=== PATIENT | female | born 1995 | race Caucasian/White ===

== ENCOUNTER 2016-09-01 16:15 | Inpatient (IN) | payer SELFPAY, OTHER ==
[~2016-09-01] VITALS: Ht 157.5 cm; Wt 54.4 kg
[2016-09-01 17:58] LABS: HEMOGLOBIN 12.6 gm/dl (12.3-15.3); RED BLOOD COUNT 4.09 M/UL (4.00-5.10); WHITE BLOOD COUNT 20.1 K/UL (4.5-11.0)
[2016-09-02 03:32] LABS: HEMOGLOBIN 9.9 gm/dl (12.3-15.3)
[2016-09-02] MEDS ORDERED: COLACE 100MG C100 MG PO (15:30)
== END 2016-09-02 15:32 | disposition home or self-care (01) | DRG 775 ==
LOC: GENOP 16:15 → OB 16:41
PROVIDERS: ADMIT Obstetrics & Gynecology
PROC: 10E0XZZ Delivery of Products of Conception, External Approach (ICD-10-PCS; principal; 2016-09-01)
DX: O99.334 Smoking (tobacco) complicating childbirth (principal); Z3A.37 37 weeks gestation of pregnancy; Z37.0 Single live birth; Z28.21 Immunization not carried out because of patient refusal; F17.210 Nicotine dependence, cigarettes, uncomplicated; O99.344 Other mental disorders complicating childbirth; F41.9 Anxiety disorder, unspecified; F32.9 Major depressive disorder, single episode, unspecified; Z88.0 Allergy status to penicillin; Z88.1 Allergy status to other antibiotic agents
CPT/HCPCS: 80307; 81001; 82800; 85014; 85018; 85025; 86900; 86901; J2270; J2590; J7120